=== PATIENT | female | born 1960 | race African-American/Black ===

== ENCOUNTER 2018-03-26 12:27 | Emergency (ER) | payer OTHER ==
[~2018-03-26] VITALS: Ht 167.6 cm; Wt 89.4 kg
[2018-03-26] MEDS ORDERED: TOPAMAX 100 MG100 MG PO (12:38)
[2018-03-26] MEDS ORDERED: LIPITOR10 MG PO (12:39)
[2018-03-26] MEDS ORDERED: AMITRIPTYLINE100 MG PO (12:39)
[2018-03-26] MEDS ORDERED: VERAPAMIL E.R240 M1 PO (12:39)
[2018-03-26] MEDS ORDERED: PROTONIX 20 MG20 M1 PO (12:40)
[2018-03-26] MEDS ORDERED: ASPIR 8181 MG PO (12:41)
[2018-03-26 14:12] LABS: HEMOGLOBIN 9.8 gm/dL (12.0-15.0); MCH 23.6 pg (26.0-34.0); MCHC 31.3 g/dL (28.0-37.0); MCV 75.4 fL (80.0-100.0)
[2018-03-26 14:14] LABS: HEMATOCRIT 31.3 % (37.0-47.0); RBC 4.15 mil/uL (4.20-5.00); RDW 21.1 % (10.5-14.5); WBC 9.2 thou/uL (4.0-11.0)
[2018-03-26 15:00] VITALS: BP 128/72
== END 2018-03-26 15:05 | disposition home or self-care (01) ==
LOC: ER 12:27
PROVIDERS: Physician Assistant
DX: R04.0 Epistaxis (principal); D64.9 Anemia, unspecified; G43.909 Migraine, unspecified, not intractable, without status migrainosus

== ENCOUNTER 2020-05-01 08:35 | Emergency (ER) | payer OTHER ==
[~2020-05-01] VITALS: Ht 167.6 cm; Wt 93.0 kg
[~2020-05-01 08:35] MED LIST: AMITRIPTYLINE100 MG PO; ASPIR 8181 MG PO; LIPITOR10 MG PO; PROTONIX 20 MG20 M1 PO; TOPAMAX 100 MG100 MG PO; VERAPAMIL E.R240 M1 PO
[2020-05-01 09:44] LABS: HEMATOCRIT 27.9 % (37.0-47.0); HEMOGLOBIN 8.7 gm/dL (12.0-15.0); MCH 23.4 pg (26.0-34.0); MCHC 31.4 g/dL (28.0-37.0); MCV 74.8 fL (80.0-100.0); RBC 3.72 mil/uL (4.20-5.00); RDW 21.6 % (10.5-14.5); WBC 6.8 thou/uL (4.0-11.0)
[2020-05-01] MEDS ORDERED: GABAPENTIN600 M1 PO (09:53)
[2020-05-01] MEDS ORDERED: ATORVASTATIN CA20 MG PO (09:53)
[2020-05-01] MEDS ORDERED: DULOXETINE HCL30 MG PO (09:53)
[2020-05-01] MEDS ORDERED: TOPIRAMATE50 MG PO (09:54)
[2020-05-01] MEDS ORDERED: PROTONIX40 M2 PO (09:54)
[2020-05-01] MEDS ORDERED: METFORMIN HCL500 M1 PO (09:54)
[2020-05-01 09:55] LABS: ANION GAP 11 mmol/L (7-16); BUN 10 mg/dL (7-18); CALCIUM 9.3 mg/dL (8.5-10.1); CHLORIDE 109 mmol/L (98-107); CO2 22 mmol/L (21-32); GLUCOSE 88 mg/dL (74-106); POTASSIUM 3.6 mmol/L (3.5-5.1); SODIUM 142 mmol/L (136-145)
[2020-05-01] MEDS ORDERED: VISTARIL 25 MG25 M1 PO (09:55)
[2020-05-01 10:12] LABS: TROPONIN-I <0.06 ng/mL (<0.06)
[2020-05-01 12:20] VITALS: BP 122/74
--- NOTE | 2020-05-03 07:30 | EKG ---
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 : 1960 Requested By: Daron Hdz Order Number: [id number] MD: Omero Swartz Measurements Intervals [place] Rate: 114 P: 70 IA: 161 QRS: 9 QRSD: 92 T: -8 QT: 331 QTc: 456 Interpretive Statements Sinus tachycardia Probable left atrial enlargement Low voltage, precordial leads Borderline T wave abnormalities No previous ECG available for comparison Electronically Signed On 05-03-2020 7:30:10 HAND FORMER HELPER by Omero Swartz [email or web address] <ELECTRONICALLY SIGNED> By: Omero Swartz MD, FACC 05/03/20729 3 3 Omero Swartz MD, [facility] /EPI
== END 2020-05-01 12:32 | disposition home or self-care (01) ==
LOC: ER 08:35
PROVIDERS: Emergency Medicine
DX: S92.515A Nondisplaced fracture of proximal phalanx of left lesser toe(s), initial encounter for closed fracture (principal); R07.89 Other chest pain; G43.909 Migraine, unspecified, not intractable, without status migrainosus; E11.9 Type 2 diabetes mellitus without complications; Z79.899 Other long term (current) drug therapy; Z79.82 Long term (current) use of aspirin; X58.XXXA Exposure to other specified factors, initial encounter; Y93.89 Activity, other specified; Y92.89 Other specified places as the place of occurrence of the external cause; Y99.8 Other external cause status

== ENCOUNTER 2020-12-21 13:08 | Emergency (ER) | payer OTHER ==
[~2020-12-21] VITALS: Ht 167.6 cm; Wt 90.7 kg
[~2020-12-21 13:08] MED LIST changes: +ATORVASTATIN CA20 MG PO; +DULOXETINE HCL30 MG PO; +GABAPENTIN600 M1 PO; +METFORMIN HCL500 M1 PO; +PROTONIX40 M2 PO; +TOPIRAMATE50 MG PO; +VISTARIL 25 MG25 M1 PO
[2020-12-21 13:17] VITALS: BP 111/68
[2020-12-21] MEDS ORDERED: APAP W/CODEINE1 TA2 PO (14:27)
== END 2020-12-21 14:28 | disposition home or self-care (01) ==
LOC: ER 13:08
DX: S90.32XA Contusion of left foot, initial encounter (principal); G43.909 Migraine, unspecified, not intractable, without status migrainosus; Z79.84 Long term (current) use of oral hypoglycemic drugs; Z79.82 Long term (current) use of aspirin; Z79.899 Other long term (current) drug therapy; Z79.891 Long term (current) use of opiate analgesic; Z88.6 Allergy status to analgesic agent

== ENCOUNTER 2021-02-26 11:16 | Inpatient (IN) | payer OTHER ==
[~2021-02-26] VITALS: Ht 167.6 cm; Wt 97.1 kg
[~2021-02-26 11:16] MED LIST changes: +APAP W/CODEINE1 TA2 PO
[2021-02-26 11:18] VITALS: BP 129/78
[2021-02-26 12:06] LABS: ABSOLUTE NEUTROPHILS 5.2 thou/uL (1.4-8.2); BASOPHILS 0.4 % (0.0-2.0); EOSINOPHILS 1.8 % (0.0-3.0); HEMATOCRIT 36.9 % (37.0-47.0); HEMOGLOBIN 11.4 gm/dL (12.0-15.0); MCH 27.7 pg (26.0-34.0); MCV 89.3 fL (80.0-100.0); MONOCYTES 4.7 % (1.0-8.0); PLATELET COUNT 208 thou/uL (150-400); POLYS 71.1 % (36.0-66.0); RBC 4.13 mil/uL (4.20-5.00); RDW 16.7 % (10.5-14.5); WBC 7.4 thou/uL (4.0-11.0)
[2021-02-26 12:08] LABS: CALCIUM 9.3 mg/dL (8.5-10.1); POTASSIUM 3.7 mmol/L (3.5-5.1)
[2021-02-26 21:38] VITALS: BP 112/58
[2021-02-26 22:00] VITALS: BP 142/85
[2021-02-26 22:51] VITALS: BP 149/84
[2021-02-26 23:00] VITALS: BP 136/78
[2021-02-27] VITALS (11 sets, daily range): BP systolic 113–145; BP diastolic 65–93
[2021-02-27 01:29] LABS: ABSOLUTE NEUTROPHILS 4.1 thou/uL (1.4-8.2); BASOPHILS 0.6 % (0.0-2.0); EOSINOPHILS 2.1 % (0.0-3.0); HEMATOCRIT 35.4 % (37.0-47.0); HEMOGLOBIN 11.4 gm/dL (12.0-15.0); LYMPHOCYTES 25.8 % (24.0-44.0); MCH 28.3 pg (26.0-34.0); MCHC 32.3 g/dL (28.0-37.0); MCV 87.9 fL (80.0-100.0); MONOCYTES 4.9 % (1.0-8.0); PLATELET COUNT 199 thou/uL (150-400); POLYS 66.6 % (36.0-66.0); RBC 4.03 mil/uL (4.20-5.00); RDW 16.4 % (10.5-14.5); WBC 6.2 thou/uL (4.0-11.0)
[2021-02-27 01:44] LABS: ANION GAP 10 mmol/L (7-16); BUN 13 mg/dL (7-18); CALCIUM 8.8 mg/dL (8.5-10.1); CHLORIDE 109 mmol/L (98-107); CO2 25 mmol/L (21-32); DIRECT BILIRUBIN < 0.1 mg/dL (<0.1-0.2); GLUCOSE 105 mg/dL (74-106); PHOSPHORUS 3.3 mg/dL (2.5-4.9); POTASSIUM 3.5 mmol/L (3.5-5.1); SGOT 19 U/L (15-37); SGPT 24 U/L (30-65); SODIUM 144 mmol/L (136-145); TOTAL BILIRUBIN 0.2 mg/dL (0.2-1.0); TOTAL PROTEIN 6.6 g/dL (6.4-8.2)
[2021-02-27 02:40] LABS: URINE BILIRUBIN NEGATIVE (Negative); URINE BLOOD NEGATIVE (Negative); URINE CLARITY CLEAR; URINE COLOR YELLOW; URINE GLUCOSE-RANDOM* NEGATIVE (Negative); URINE KETONES NEGATIVE (Negative); URINE LEUKOCYTES-REFLEX TRACE (Negative); URINE NITRITE-REFLEX NEGATIVE (Negative); URINE PROTEIN (DIPSTICK) NEGATIVE (Negative); URINE UROBILINOGEN 0.2 E.U./dl (0.2-1.0)
--- NOTE | 2021-02-27 04:52 | NUR ---
ADMITTED THIS PATIENT FROM THE EMERGENCY DEPARTMENT AROUND 2155H.ON ROOM AIR BREATHING SPONTANEOUSLY.CONNECTED TO ELECTRICAL PROSPECTING ENGINEER SHOWING SINUS RYTHM.ON NITRO DRIP AT 5MCG/MIN, CHEST PAIN IS CONTROLLED BUT PATIENT IS ALSO HAVING HEADACHE.MIGRAINE MEDICATIONS RESUMED BY TOWER OPERATOR AND PRN TYLENOL WAS ALSO GIVEN.ADMISSION COMPLETED.ALL NEEDS ATTENDED.CARDIOLOGY TO BE CONSULTED.
[2021-02-27 08:36] LABS: CHOLESTEROL 143 mg/dL (<200); HDL CHOLESTEROL 64 mg/dL (>40); LDL CHOLESTEROL 63 mg/dL (<100); TC:HDL 2.2 Ratio (Not establshd); TRIGLYCERIDE 81 mg/dL (<150); VLDL 16 mg/dL (<40)
[2021-02-27 08:55] LABS: % SATURATION 25 % (20-39); IRON 79 ug/dL (50-170); TIBC 314 ug/dL (250-450)
[2021-02-27 09:03] LABS: FOLIC ACID 8.3 ng/mL (8.6-58.9)
--- NOTE | 2021-02-27 11:31 | EKG ---
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 : 1960 Requested By: Raghu Cannon Order Number: [id number] MD: Omero Swartz Measurements Intervals [place] Rate: 91 P: 47 WV: 194 QRS: -5 QRSD: 104 T: 2 QT: 386 QTc: 475 Interpretive Statements Sinus rhythm Low voltage, precordial leads Probable left ventricular hypertrophy Borderline T abnormalities, diffuse leads Baseline wander in lead(s) I,III,aVR,aVL Compared to ECG 05/01/2020 08:54:02 Sinus tachycardia no longer present T-wave abnormality still present Electronically Signed On 02-27-2021 11:31:30 CDT by Omero Swartz [email or web address] <ELECTRONICALLY SIGNED> By: Omero Swartz MD, FAC 02/27/21 1131 1120 1120 Omero Swartz MD, [facility] /EPI
--- NOTE | 2021-02-27 11:32 | EKG ---
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 02/27/21 1131 1544 1544 Omero Swartz MD, [facility] /EPI
--- NOTE | 2021-02-27 18:11 | NUR ---
Assumed care of pt this AM. Pt was on nitro gtt, c/o substernal chest pain. A&O x4. Per cardiology, nitro gtt stopped as pt suffers from migraines & was exascerbating symptoms. Throughout day, pt reported that migraine was becoming under control & chest pain was also disappearing. SR on the monitor. Pt ate meal contrary to diet for dinner & started complaining of chest pain that radiated to the arm. EKG done - "otherwise normal ECG", sinus rhythm. Pt declining coreg as not part of normal medication she takes. Paged Dr. Levi & restarted home verapamil.
--- NOTE | 2021-02-28 00:31 | NUR ---
PT ALERT AND ORIENTED X4. VSS AFEBRILE 96% ON RA. NO C/O ANDERSON OR CHEST PAIN PRESENTLY. NPO AFTER MN FOR STRESS TEST AND ECHO. BED DOWN. CALL LIGHT IN REACH. PT AMBULATES TO BR INDEPENDENTLY. PT RESTING QUIETLY.
[2021-02-28 03:05] LABS: GLYCOHEMOGLOBIN (HGB A1C) 6.5 % (4.8-5.6)
[2021-02-28 03:50] VITALS: BP 124/64
[2021-02-28 04:45] VITALS: BP 124/78
[2021-02-28 05:25] LABS: ABSOLUTE NEUTROPHILS 3.9 thou/uL (1.4-8.2); BASOPHILS 0.4 % (0.0-2.0); EOSINOPHILS 2.5 % (0.0-3.0); HEMATOCRIT 39.4 % (37.0-47.0); HEMOGLOBIN 12.5 gm/dL (12.0-15.0); LYMPHOCYTES 29.3 % (24.0-44.0); MCH 28.4 pg (26.0-34.0); MCHC 31.8 g/dL (28.0-37.0); MCV 89.2 fL (80.0-100.0); MONOCYTES 5.1 % (1.0-8.0); PLATELET COUNT 228 thou/uL (150-400); POLYS 62.7 % (36.0-66.0); RBC 4.41 mil/uL (4.20-5.00); RDW 17.1 % (10.5-14.5); WBC 6.3 thou/uL (4.0-11.0)
[2021-02-28 05:40] LABS: CREATININE 0.9 mg/dL (0.6-1.0); POTASSIUM 3.8 mmol/L (3.5-5.1)
--- NOTE | 2021-02-28 07:57 | NUR ---
PT ALERT AND ORIENTED X4. VSS AFEBRILE. SATS WNL ON RA. CC/O CP X1 THIS MORNING. EKG DONE. PRESSURE TYPE CHEST PAIN RESOLVED WITHIN A FEW MINUTES AFTER LYING DOWN WHILE EKG WAS BEING DONE. NOTIFIED BULL RIDER THIS MORNING FOR CARDIOLOGY REGARDING CP AND EKG ON CHART WHICH SHE VIEWED. PT HAS BEEN NPO AFTER MN FOR ECHO AND STRESS TEST.
[2021-02-28 08:00] VITALS: BP 118/77
--- NOTE | 2021-02-28 08:10 | EKG ---
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
[2021-02-28 11:51] VITALS: BP 124/79
--- NOTE | 2021-02-28 14:39 | 2DMMODE ---
[facility] [address] [address] 2 D/M-MODE ECHOCARDIOGRAM Name: MELLISA COLE Room #: 207-P ADM IN M.R.#: [id number] Admission: 02/26/21 Attend Phys: Yesika Levi MD Discharge: Date of : 60 Report #: [id number] THIS REPORT FOR: cc: FAM - Clinic physician unknown FAM - No family physician/PCP Omero Swartz MD [facility] ~ APPROVED REPORT Study performed: 02/28/2021 13:27:26 EXAM: Comprehensive 2D, Doppler, and color-flow Echocardiogram Patient Location: Bedside Room #: 207 Status: routine BSA: 2.04 HR: 93 bpm BP: 124/79 mmHg Rhythm: NSR Other Information Study Quality: Adequate Indications Diabetes Chest Pain Hypertension/HDD 2D Dimensions IVSd: 8.93 (7-11mm) LVOT Diam: 20.46 (18-24mm) LVDd: 48.67 mm PWd: 8.63 (7-11mm) Ascending Ao: 27.16 (22-36mm) LVDs: 37.23 (25-40mm) Left Atrium: 28.73 (27-40mm) Aortic Root: 29.93 mm IVC: 12.00 mm Aortic Valve AoV Peak Alfred.: 1.03 m/s AO Peak Gr.: 4.20 mmHg LVOT Max P.81 mmHg LVOT Max V: 0.84 m/s MARIANO Vmax: 2.69 cm2 Pulmonary Valve PV Peak Alfred.: 1.05 m/s PV Peak Gr.: 4.[address] [facility] [address] [place] [address] 2 D/M-MODE ECHOCARDIOGRAM Name: MELLISA COLE Room #: 207-P [facility] IN M.R.#: [id number] Admission: 02/26/21 Attend Phys: Yesika Levi, Discharge: Date of : 60 Report #: [id number] Left Ventricle The left ventricle is normal size. There is normal LV segmental wall motion. There is normal left ventricular wall thickness. The left ventricular systolic function is normal. The left ventricular ejection fraction is within the normal range. LVEF is 55-60%. The left ventricular diastolic function is abnormal. Right Ventricle The right ventricle is normal size. The right ventricular systolic function is normal. Atria The left atrium size is normal. The right atrium size is normal. Aortic Valve The aortic valve is normal in structure. No aortic regurgitation is present. There is no aortic valvular stenosis. Mitral Valve The mitral valve is normal in structure. There is no mitral valve regurgitation noted. No evidence of mitral valve stenosis. Tricuspid Valve The tricuspid valve is normal in structure. There is no tricuspid valve regurgitation noted. Pulmonic Valve The pulmonary valve is normal in structure. There is no pulmonic valvular regurgitation. Great Vessels The aortic root is normal in size. IVC is normal in size and collapses >50% with inspiration. Pericardium There is no pericardial effusion. <Conclusion> Normal left ventricle size with mild concentric hypertrophy Ejection fraction 55% Grade 1 diastolic dysfunction Normal right ventricular size/function Normal atrial size Normal aortic/mitral valve structure and function No tricuspid valve insufficiency [facility] [address] [place] [address] 2 D/M-MODE ECHOCARDIOGRAM Name: MELLISA COLE Room #: 207-P [facility] IN .R.#: [id number] Admission: 02/26/21 Attend Phys: Yesika Levi, Discharge: Date of : 60 Report #: [id number] No pericardial effusion Normal aortic root size. <ELECTRONICALLY SIGNED> By: Omero Swartz MD, FACC 02/28/21 1439 38 38 Omero Swartz MD, FACC /INF
[2021-02-28 16:00] VITALS: BP 134/82
[2021-02-28] MEDS ORDERED: COREG6.25 MG PO (16:40)
[2021-02-28] MEDS ORDERED: CARAFATE 1 GM TA1 G1 PO (16:41)
[2021-02-28] MEDS ORDERED: AMITIZA 24 MCG24 MC1 PO (16:41)
[2021-02-28] MEDS ORDERED: FOLIC ACID1 MG PO (16:42)
[2021-02-28] MEDS ORDERED: B-125000 MC1 SUBLING (16:43)
[2021-02-28] MEDS ORDERED: ASA81BEC PO (16:48)
[2021-02-28] MEDS ORDERED: VERAPAMIL ER180 M1 PO (16:54)
[2021-02-28 17:26] VITALS: BP 134/82
--- NOTE | 2021-02-28 18:37 | NUR ---
patient discharged, no questions or conerns at time of education. IV and tele removed. taken by wheelchair to vehicle by staff where daughter awaits.
== END 2021-02-28 18:48 | disposition home or self-care (01) | DRG 313 ==
LOC: ER 11:16 → 2N 13:28
PROVIDERS: Emergency Medicine; ADMIT Internal Medicine; ATTEND Internal Medicine
DX: R07.89 Other chest pain (principal); I20.0 Unstable angina; E11.9 Type 2 diabetes mellitus without complications; K21.9 Gastro-esophageal reflux disease without esophagitis; M19.90 Unspecified osteoarthritis, unspecified site; Z96.653 Presence of artificial knee joint, bilateral; E78.5 Hyperlipidemia, unspecified; G43.909 Migraine, unspecified, not intractable, without status migrainosus; D64.9 Anemia, unspecified; E66.9 Obesity, unspecified; Z20.822 Contact with and (suspected) exposure to COVID-19; Z88.8 Allergy status to other drugs, medicaments and biological substances; Z88.6 Allergy status to analgesic agent; Z68.34 Body mass index [BMI] 34.0-34.9, adult
CPT/HCPCS: 10081